=== PATIENT | female | born 1970 | race Caucasian/White ===

== ENCOUNTER 2024-04-08 11:50 | Day surgery (SDC) | payer BC ==
[2024-04-08] MEDS: Lactated Ringers 1,000 ML IV SCH (12:03)
[2024-04-08 14:08] VITALS: BP 119/68; PULSE 71
== END 2024-04-08 13:35 | disposition home or self-care (01) ==
LOC: CC.SDS 11:50
PROVIDERS: ATTEND Family Medicine
DX: Z12.11 Encounter for screening for malignant neoplasm of colon (principal); K57.30 Diverticulosis of large intestine without perforation or abscess without bleeding; I10 Essential (primary) hypertension; E78.5 Hyperlipidemia, unspecified; E66.9 Obesity, unspecified; E11.9 Type 2 diabetes mellitus without complications; Z88.8 Allergy status to other drugs, medicaments and biological substances; Z88.2 Allergy status to sulfonamides; Z68.34 Body mass index [BMI] 34.0-34.9, adult; Z79.899 Other long term (current) drug therapy
CPT/HCPCS: 00812; J7120